=== PATIENT | male | born 1955 | race African-American/Black ===

== ENCOUNTER 2021-02-13 21:00 | Emergency (ER) | payer OTHER ==
[~2021-02-13] VITALS: Ht 200.7 cm; Wt 129.3 kg
[2021-02-13 23:29] LABS: Basophils # (auto) 0.1 10 ^3/uL (0-0.2); Eosinophils # (auto) 0.1 10 ^3/uL (0-0.8); Eosinophils % (auto) 1.5 % (0.0-7.0); Hematocrit 41.4 % (41.0-53.0); Hemoglobin 13.4 g/dL (13.5-17.5); Lymphocytes # (auto) 1.4 10 ^3/uL (0.4-5.4); Lymphocytes % (auto) 22.6 % (10.0-50.0); Mean Corpuscular Hemoglobin 26.4 pg (28.0-32.0); Mean Corpuscular Hgb Conc. 32.4 g/dL (32.0-36.0); Mean Corpuscular Volume 81.5 fL (80.0-100.0); Monocytes # (auto) 0.4 10 ^3/uL (0-1.3); Neutrophils # (auto) 4.3 10 ^3/uL (1.6-8.6); Neutrophils % (auto) 67.9 % (37.0-80.0); Nucleated Red Blood Cells % 0.1 %; Red Blood Cells 5.09 10^6/uL (4.5-5.90); Red Cell Distribution Width 18.4 % (11.8-14.3); White Blood Cell 6.3 10^3/uL (4.4-10.8)
[2021-02-13 23:41] LABS: Albumin 3.1 g/dL (3.4-5.0); Calcium 8.6 mg/dL (8.5-10.1); Potassium 4.8 mmol/L (3.5-5.1)
[2021-02-13 23:48] LABS: BUN/Creatinine Ratio 11.2; Bilirubin, Total 1.1 mg/dL (0.2-1.0); Total Protein 8.2 g/dL (6.4-8.2)
[2021-02-14 01:27] VITALS: BP 146/79
== END 2021-02-14 01:37 | disposition home or self-care (01) ==
LOC: ER 21:02
DX: R60.9 Edema, unspecified (principal); I50.9 Heart failure, unspecified
CPT/HCPCS: 36415; 80053; 84484; 85025; 93005